=== PATIENT | male | born 1945 | race Two or more races ===

== ENCOUNTER 2017-12-19 11:44 | Emergency (ER) | payer MEDICARE, MEDICAID ==
[~2017-12-19] VITALS: Ht 175.3 cm; Wt 81.6 kg
[2017-12-19] MEDS ORDERED: SODIUM CHLORIDE 0.9% 1,000 ML IVB ONE (11:53)
[2017-12-19 12:32] LABS: Basophils # (auto) 0 uL; Basophils % (auto) 0.6 % (0.0-2.0); Eosinophils # (auto) 0.2 uL; Eosinophils % (auto) 4.4 % (0.0-7.0); Hematocrit 47.3 % (41.0-53.0); Lymphocytes # (auto) 1.2 uL; Lymphocytes % (auto) 33.6 % (10.0-50.0); Mean Corpuscular Hemoglobin 31.3 pg (28.0-32.0); Mean Corpuscular Hgb Conc. 33.8 g/dL (32.0-36.0); Mean Corpuscular Volume 92.7 fL (80.0-100.0); Monocytes # (auto) 0.2 uL; Monocytes % (auto) 5.4 % (0.0-12.0); Neutrophils # (auto) 2.1 uL; Nucleated Red Blood Cells % 0.3 %; Platelet Count (auto) 133 10^3/uL (140-450); Red Cell Distribution Width 14.8 % (11.8-14.3); White Blood Cell 3.7 10^3/uL (4.4-10.8)
[2017-12-19 12:55] LABS: Albumin 4.1 g/dL (3.4-5.0); BUN/Creatinine Ratio 8.3; Calcium 8.2 mg/dL (8.5-10.1); Magnesium 2.4 mg/dL (1.6-2.6); Potassium 3.8 mmol/L (3.5-5.1)
[2017-12-19 12:58] LABS: Bilirubin, Total 0.3 mg/dL (0.2-1.0); Total Protein 8.5 g/dL (6.4-8.2)
[2017-12-19] MEDS ORDERED: LORazepam 2MG/ML-1ML VIAL IV ONE ×2 (18:45→21:00)
[2017-12-19] MEDS ORDERED: MVI in SODIUM CHLORIDE 0.9% 1,010 ML ONE (22:59)
[2017-12-19] MEDS: THIAMINE INJ 100 MG, MULTIPLE VITAMIN 10 ML, FOLIC ACID 1 MG, MAGNESIUM SULF SDV 50% 8 ... IV SCH ×5 (23:08)
[2017-12-20] MEDS: THIAMINE INJ 100 MG, MULTIPLE VITAMIN 10 ML, FOLIC ACID 1 MG, MAGNESIUM SULF SDV 50% 8 ... IV SCH ×15 (00:08→10:24)
[2017-12-20] MEDS ORDERED: SODIUM CHLORIDE 0.9% 1,000 ML IV ONE (02:15)
[2017-12-20] MEDS ORDERED: LORazepam 0.5 MG TAB PO ONE (02:15)
[2017-12-20] MEDS ORDERED: chlordiazePOXIDE HCL 25 MG CAP PO ONE (06:00)
[2017-12-20] MEDS ORDERED: ALUM & MAG HYDROX-SIMETH LIQ(MAALOX) 30 ML PO ONE (09:45)
[2017-12-20] MEDS ORDERED: DONNATAL 5ml ORAL Elix (BELLADONNA ALK-PHENOBARB) PO ONE (09:45)
[2017-12-20] MEDS ORDERED: LIDOCAINE VISCOUS 2% 15ML UD PO ONE (09:45)
[2017-12-20 10:20] VITALS: BP 181/89
== END 2017-12-20 12:08 | disposition home or self-care (01) ==
LOC: ER 11:44 → EDBD 11:44 → ER 12-20 12:00
DX: F10.129 Alcohol abuse with intoxication, unspecified (principal); R41.82 Altered mental status, unspecified; F41.9 Anxiety disorder, unspecified; I10 Essential (primary) hypertension; Y90.8 Blood alcohol level of 240 mg/100 ml or more
CPT/HCPCS: 36415; 80053; 80320; 83735; 85025; 93005; 94761; 96361; 96374; 96376; 99285; J2060; J3411; J3475; J7030

== ENCOUNTER 2018-01-18 19:22 | Emergency (ER) | payer OTHER, MEDICAID ==
[~2018-01-18] VITALS: Ht 180.3 cm; Wt 81.6 kg
[2018-01-18] MEDS ORDERED: MVI in SODIUM CHLORIDE 0.9% 1,010 ML IV ONE (20:20)
[2018-01-18] MEDS ORDERED: SODIUM CHLORIDE 0.9% 500 ML IV ONE (20:30)
[2018-01-18] MEDS: MAGNESIUM SULFATE 1GM/100ML 100 ML IV SCH ×2 (20:30→22:43)
[2018-01-18] MEDS ORDERED: THIAMINE 100mg/ml INJ (200mg/2ml VIAL) IV ONE (20:30)
[2018-01-18 20:50] LABS: Urine Bacteria NONE SEEN /hpf (None Seen); Urine Blood Negative /uL (Negative); Urine Specific Gravity 1.004 (1.001-1.035); Urine WBC <1 /hpf (0 - 3)
[2018-01-18 20:55] LABS: Amphetamine Screen, Urine NEGATIVE (NEGATIVE); Barbiturate Scree,Urine NEGATIVE (NEGATIVE); Benzodiazephine Screen, Urine POSITIVE (NEGATIVE); Cannabinoid Screen, Urine NEGATIVE (NEGATIVE); Cocaine Screen, Urine NEGATIVE (NEGATIVE); Opiate Scree,Urine NEGATIVE (NEGATIVE); Phencyclidine Screen, Urine NEGATIVE (NEGATIVE)
[2018-01-18 21:29] LABS: Basophils # (auto) 0 uL; Basophils % (auto) 0.2 % (0.0-2.0); Eosinophils # (auto) 0.1 uL; Eosinophils % (auto) 1.9 % (0.0-7.0); Hematocrit 45.7 % (41.0-53.0); Hemoglobin 15.1 g/dL (13.5-17.5); Lymphocytes # (auto) 1.4 uL; Lymphocytes % (auto) 17.7 % (10.0-50.0); Mean Corpuscular Hemoglobin 31.2 pg (28.0-32.0); Mean Corpuscular Volume 94.7 fL (80.0-100.0); Monocytes # (auto) 0.5 uL; Monocytes % (auto) 6.7 % (0.0-12.0); Neutrophils # (auto) 5.8 uL; Neutrophils % (auto) 73.5 % (37.0-80.0); Nucleated Red Blood Cells % 0.1 %; Platelet Count (auto) 124 10^3/uL (140-450); Red Blood Cells 4.82 10^6/uL (4.5-5.90); Red Cell Distribution Width 15.4 % (11.8-14.3); White Blood Cell 7.9 10^3/uL (4.4-10.8)
[2018-01-18 21:41] LABS: Calcium 8.1 mg/dL (8.5-10.1); Potassium 3.5 mmol/L (3.5-5.1)
[2018-01-18 21:46] LABS: BUN/Creatinine Ratio 12.1; Bilirubin, Total 0.3 mg/dL (0.2-1.0)
[2018-01-19 00:40] VITALS: BP 134/81
== END 2018-01-19 01:44 | disposition home or self-care (01) ==
LOC: EDBD 19:22 → ER 19:26
DX: S00.83XA Contusion of other part of head, initial encounter (principal); S50.12XA Contusion of left forearm, initial encounter; S16.1XXA Strain of muscle, fascia and tendon at neck level, initial encounter; G92 Toxic encephalopathy; F10.129 Alcohol abuse with intoxication, unspecified; Y90.0 Blood alcohol level of less than 20 mg/100 ml; I10 Essential (primary) hypertension; W01.198A Fall on same level from slipping, tripping and stumbling with subsequent striking against other object, initial encounter; Y93.89 Activity, other specified; Y92.89 Other specified places as the place of occurrence of the external cause; Y99.8 Other external cause status
CPT/HCPCS: 36415; 70450; 70486; 72125; 73090; 80053; 80307; 80320; 81001; 83735; 85025; 94761; 96365; 96375; 99285; J3411; J3475; J7040

== ENCOUNTER 2018-02-22 14:38 | Emergency (ER) | payer OTHER, MEDICAID ==
[~2018-02-22] VITALS: Ht 167.6 cm; Wt 81.6 kg
[2018-02-22 14:52] VITALS: BP 153/73
[2018-02-22 15:25] LABS: Basophils # (auto) 0 uL; Basophils % (auto) 0.6 % (0.0-2.0); Eosinophils # (auto) 0.1 uL; Eosinophils % (auto) 2.4 % (0.0-7.0); Hematocrit 38.6 % (41.0-53.0); Hemoglobin 12.9 g/dL (13.5-17.5); Lymphocytes # (auto) 0.9 uL; Lymphocytes % (auto) 24.2 % (10.0-50.0); Mean Corpuscular Hemoglobin 31.9 pg (28.0-32.0); Mean Corpuscular Hgb Conc. 33.6 g/dL (32.0-36.0); Monocytes # (auto) 0.3 uL; Monocytes % (auto) 7.4 % (0.0-12.0); Neutrophils # (auto) 2.3 uL; Neutrophils % (auto) 65.4 % (37.0-80.0); Nucleated Red Blood Cells % 0.1 %; Platelet Count (auto) 119 10^3/uL (140-450); Red Blood Cells 4.06 10^6/uL (4.5-5.90); Red Cell Distribution Width 15.9 % (11.8-14.3); White Blood Cell 3.5 10^3/uL (4.4-10.8)
[2018-02-22 16:04] LABS: Albumin 3.6 g/dL (3.4-5.0); BUN/Creatinine Ratio 11.5; Calcium 8.3 mg/dL (8.5-10.1); Potassium 3.7 mmol/L (3.5-5.1)
[2018-02-22 16:07] LABS: Bilirubin, Total 0.3 mg/dL (0.2-1.0); Total Protein 7.1 g/dL (6.4-8.2)
== END 2018-02-22 21:00 | disposition left against medical advice (07) ==
LOC: EDBD 14:38 → ER 14:41
DX: F10.10 Alcohol abuse, uncomplicated (principal); Z53.21 Procedure and treatment not carried out due to patient leaving prior to being seen by health care provider
CPT/HCPCS: 36415; 80053; 80320; 85025

== ENCOUNTER 2018-02-25 04:25 | Emergency (ER) | payer OTHER, MEDICAID ==
[2018-02-25 04:39] VITALS: BP 179/84
[2018-02-25] MEDS ORDERED: clonazePAM 0.5 MG TAB PO ONE (07:00)
== END 2018-02-25 08:01 | disposition home or self-care (01) ==
LOC: ER 04:30
DX: F10.239 Alcohol dependence with withdrawal, unspecified (principal); Z76.0 Encounter for issue of repeat prescription; I10 Essential (primary) hypertension; Z86.73 Personal history of transient ischemic attack (TIA), and cerebral infarction without residual deficits

== ENCOUNTER 2018-03-22 21:55 | Emergency (ER) | payer OTHER, MEDICAID ==
[~2018-03-22] VITALS: Ht 170.2 cm; Wt 86.2 kg
[~2018-03-22 21:55] MED LIST: CLON1TAB PO; LISI-646 PO; NAP500T PO; TAMS0.4C36 PO
[2018-03-22] MEDS ORDERED: SODIUM CHLORIDE 0.9% 3,000 ML IVB STA (23:55)
[2018-03-23 02:24] LABS: Basophils # (auto) 0 uL; Basophils % (auto) 0.9 % (0.0-2.0); Eosinophils # (auto) 0.1 uL; Eosinophils % (auto) 2.2 % (0.0-7.0); Hematocrit 40.4 % (41.0-53.0); Hemoglobin 13.3 g/dL (13.5-17.5); Lymphocytes # (auto) 1.2 uL; Lymphocytes % (auto) 22.1 % (10.0-50.0); Mean Corpuscular Hemoglobin 31.4 pg (28.0-32.0); Mean Corpuscular Hgb Conc. 32.9 g/dL (32.0-36.0); Mean Corpuscular Volume 95.4 fL (80.0-100.0); Monocytes # (auto) 0.5 uL; Monocytes % (auto) 8.5 % (0.0-12.0); Neutrophils # (auto) 3.6 uL; Neutrophils % (auto) 66.3 % (37.0-80.0); Platelet Count (auto) 193 10^3/uL (140-450); Red Blood Cells 4.24 10^6/uL (4.5-5.90); Red Cell Distribution Width 16.1 % (11.8-14.3); White Blood Cell 5.5 10^3/uL (4.4-10.8)
[2018-03-23 02:44] LABS: Albumin 3.5 g/dL (3.4-5.0); BUN/Creatinine Ratio 16.9
[2018-03-23 02:46] LABS: Bilirubin, Total 0.2 mg/dL (0.2-1.0); Total Protein 7.1 g/dL (6.4-8.2)
[2018-03-23 04:33] LABS: Salicylate < 1.7 mg/dL (2.8-20.0)
[2018-03-23 05:40] LABS: Urine Bacteria NONE SEEN /hpf (None Seen); Urine Blood Negative /uL (Negative); Urine Specific Gravity 1.009 (1.001-1.035); Urine WBC <1 /hpf (0 - 3)
[2018-03-23 05:45] VITALS: BP 160/109
[2018-03-23 05:49] LABS: Amphetamine Screen, Urine NEGATIVE (NEGATIVE); Barbiturate Scree,Urine NEGATIVE (NEGATIVE); Benzodiazephine Screen, Urine NEGATIVE (NEGATIVE); Cannabinoid Screen, Urine NEGATIVE (NEGATIVE); Cocaine Screen, Urine NEGATIVE (NEGATIVE); Opiate Scree,Urine NEGATIVE (NEGATIVE); Phencyclidine Screen, Urine NEGATIVE (NEGATIVE)
[2018-03-23 10:01] LABS: Acetaminophen < 2.0 ug/mL (10-30)
== END 2018-03-23 08:46 | disposition home or self-care (01) ==
LOC: EDBD 21:55 → ER 21:57
DX: F10.20 Alcohol dependence, uncomplicated (principal); I10 Essential (primary) hypertension; Z79.899 Other long term (current) drug therapy; Z86.73 Personal history of transient ischemic attack (TIA), and cerebral infarction without residual deficits
CPT/HCPCS: 36415; 80053; 80307; 80320; 80329; 81001; 83735; 85025; 99283; J7030